=== PATIENT | male | born 1985 | race Two or more races ===

== ENCOUNTER 2020-11-16 07:00 | Emergency (ER) | payer OTHER ==
[~2020-11-16] VITALS: Ht 175.3 cm; Wt 104.3 kg
[2020-11-16 08:02] VITALS: BP 146/99
[2020-11-16] MEDS ORDERED: IBUPROFEN 800 MG TAB PO ONE (08:15)
== END 2020-11-16 08:38 | disposition home or self-care (01) ==
LOC: ER 07:03
DX: K04.7 Periapical abscess without sinus (principal)